=== PATIENT | female | born 1995 | race Caucasian/White ===

== ENCOUNTER 2016-04-25 08:19 | Emergency (ER) | payer OTHER ==
--- NOTE | 2016-04-25 08:29 | UCPHY ---
H & P Time Seen by Provider: 04/25/16 08:24 Patient Type: New HPI/ROS: 20-year-old female presents complaining of sore throat for approximately 8 hours. No difficulty swallowing, tolerating her own secretions. Review of systems As per HPI General no fever no chills no weakness HEENT no eye pain no eye discharge. No eye redness, positive sore throat Respiratory no cough, no shortness of breath Cardiac no chest pain, no peripheral edema GI no abdominal pain, no diarrhea, no constipation, no nausea, no vomiting no flank pain, no hematuria, no dysuria Musculoskeletal no myalgias, no joint pain Heme no easy bruising, no easy bleeding Endo no polyuria, no polydipsia Skin no rashes, no pruritus Neuro no syncope, no dizziness, no headaches Psych is no suicidal ideation, no homicidal ideation Past Medical/Surgical History: Frequent pharyngitis Social History: Student Smoking Status: Never smoked Physical Exam: 20-year-old female Alert and oriented in no acute distress nontoxic appearance, afebrile Atraumatic normocephalic Extraocular muscles intact, anicteric Neck-supple, positive anterior cervical lymphadenopathy mildly tender to palpation Oropharynx positive enlarged tonsils, erythematous, no uvular deviation, no purulent exudate, tolerating own secretions, no trismus Lungs clear to auscultation bilaterally Heart regular rate and rhythm Abdomen normoactive bowel sounds soft nontender Extremities no cyanosis clubbing edema Skin no rash Constitutional: Initial Vital Signs Temperature (C) 36.9 C 04/25/16 08:31 Heart Rate 78 04/25/16 08:31 Respiratory Rate 16 04/25/16 08:31 Blood Pressure 98/73 L 04/25/16 08:31 O2 Sat (%) 95 04/25/16 08:31 O2 Delivery Mode Room Air Allergies/Adverse Reactions: No Known Allergies Allergy (Verified 04/25/16 08:32) Home Medications: Medication Instructions Recorded AZITHROMYCIN [Z-PACK] 250 mg PO DAILY #6 tab 04/25/16 Medical Decision Making ED Course/Re-evaluation: Patient seen and evaluated for sore throat of 8 hours duration. Rapid strep negative Impression Pharyngitis Plan [facility] PCP Differential Diagnosis: Viral pharyngitis, strep pharyngitis, URI, viral syndrome - Data Points Laboratory Results: 04/25/16 04/25/16 Unknown 08:31 Group A Strep Screen NEGATIVE (NEGATIVE) Group A Strep DNA Pending Departure - Departure Disposition: Home, Routine, Self-Care Clinical Impression: Acute pharyngitis Condition: Good Instructions: Pharyngitis (ED) Referrals: [facility] [Provider Group] - As per Instructions Prescriptions: AZITHROMYCIN [Z-PACK] 250 mg PO DAILY #6 tab - PQRS PQRS Measurement: Not applicable
[2016-04-25 08:33] VITALS: BP 98/73; PULSE 78; RESP 16; TEMP 98.4; O2SAT 95
== END 2016-04-25 09:00 | disposition home or self-care (01) ==
LOC: CED 08:19
DX: J02.9 Acute pharyngitis, unspecified (principal)
CPT/HCPCS: 87880-PO; 99203-PO; G0463-PO